=== PATIENT | female | born 1965 | race African-American/Black ===

== ENCOUNTER 2024-12-07 10:23 | Outpatient (CLI) | payer OTHER | END 2024-12-07 10:24 | disposition home or self-care (01) | LOC: NAV RAD 10:23 | PROVIDERS: ATTEND Nurse Practitioner Family | DX: M25.561 Pain in right knee (principal); M17.11 Unilateral primary osteoarthritis, right knee; M54.2 Cervicalgia; M47.812 Spondylosis without myelopathy or radiculopathy, cervical region | CPT/HCPCS: 72040 ==